=== PATIENT | female | born 1935 | race Caucasian/White ===

== ENCOUNTER → 2020-08-11 | Outpatient (CLI) | payer MEDICARE, OTHER ==
[~2020-08-11] MED LIST: ARTIFICIAL TEA1 EACH OP; CALCIUM + D3 E1 EACH PO; CARDIZEM CD180 MG PO; CORDARONE 200M200 MG PO; COZAAR25 MG PO; DYMISTA NASAL S23 GM; ELIQUIS5 MG PO; K-DUR TAB 10 M10 MEQ PO; KRILL OIL 1,001 EACH PO; LASIX20 MG PO; NEURONTIN 300300 MG PO; OMEPRAZOLE20 MG PO; RESTASIS1 EACH OU; SINGULAIR10 MG PO; SYMBICORT 16010.2 GM INH; SYNTHROID75 MCG PO; THERAGRAN M TAB1 EA PO; VENTOLIN HFA 66.7 GM INH; VITAMIN B-122500 MCG SL; XOPENEX1.25 MG/3 INH; ZYRTEC10 M3 PO
== END ==
LOC: LAB 12:27
PROVIDERS: Internal Medicine Nephrology
DX: E87.5 Hyperkalemia (principal)
CPT/HCPCS: 36415; 80048

== ENCOUNTER 2020-09-17 14:10 | Emergency (ER) | payer MEDICARE, OTHER ==
[2020-09-17 16:04] LABS: RED BLOOD COUNT 2.45 M/UL (4.00-5.10); WHITE BLOOD COUNT 5.7 K/UL (4.5-11.0)
== END 2020-09-18 03:48 | disposition home or self-care (01) ==
LOC: ER1 14:10
PROVIDERS: Physician Assistant
DX: D64.9 Anemia, unspecified (principal); I48.91 Unspecified atrial fibrillation; I11.0 Hypertensive heart disease with heart failure; I50.9 Heart failure, unspecified; Z90.710 Acquired absence of both cervix and uterus; Z88.2 Allergy status to sulfonamides; Z88.8 Allergy status to other drugs, medicaments and biological substances; Z79.01 Long term (current) use of anticoagulants
CPT/HCPCS: 36430; 80053; 82270; 85014; 85018; 85025; 86850; 86900; 86901; 86920; 99284; P9016